=== PATIENT | female | born 1970 | race Two or more races ===

== ENCOUNTER 2017-06-04 12:15 | Emergency (ER) | payer MEDICAID ==
[~2017-06-04] VITALS: Ht 160 cm; Wt 77.7 kg
[2017-06-04] MEDS ORDERED: FAMOTIDINE 20 MG/2 ML ONE (12:43)
[2017-06-04] MEDS ORDERED: MAALOX/HYOSCYAMINE/LIDOCAINE 45 ML BTL ONE (12:43)
[2017-06-04] MEDS ORDERED: ONDANSETRON 2MG/ML, 2ML ONE (12:43)
[2017-06-04] MEDS ORDERED: MAALOX/HYOSCYAMINE/LIDOCAINE 45 ML BTL PO ONE (13:00)
[2017-06-04] MEDS ORDERED: SODIUM CHLORIDE 0.9% 1,000ML IVBOLUS ONE (13:00)
[2017-06-04] MEDS ORDERED: ONDANSETRON 2MG/ML, 2ML IVPush ONE (13:00)
[2017-06-04] MEDS ORDERED: FAMOTIDINE 20 MG/2 ML IVP ONE (13:00)
[2017-06-04] MEDS ORDERED: SODIUM CHLORIDE FLUSH 10ML SYR IVF ONE (13:00)
[2017-06-04 13:13] LABS: ASPARTATE AMINO TRANSFERASE 13 U/L (15-37); BLOOD UREA NITROGEN 17 mg/dL (7-18)
[2017-06-04 13:28] LABS: HEMATOCRIT 33.3 % (34.6-47.8); HEMOGLOBIN 10.1 g/dL (11.7-16.4); WHITE BLOOD COUNT 8.9 x10^3/uL (3.4-10)
[2017-06-04 13:31] LABS: DIFF TOTAL CELLS COUNTED 100 CELL DIFF
[2017-06-04 13:35] LABS: ANISOCYTOSIS 1+; MICROCYTOSIS 2+; OVALOCYTES 1+; VERIFY COUNTS? YES
[2017-06-04 13:36] LABS: POLYCHROMASIA 1+
[2017-06-04 14:26] VITALS: BP 125/84
== END 2017-06-04 14:28 | disposition home or self-care (01) ==
LOC: ED 13:47
DX: K29.00 Acute gastritis without bleeding (principal)
CPT/HCPCS: 36415; 74020; 80053; 81003; 83690; 84703; 85025; 93005; 96361; 96374; 96375; 99285; J2405; J7030; S0028